=== PATIENT | female | born 1985 | race Caucasian/White ===

== ENCOUNTER 2022-03-24 07:42 | Emergency (ER) | payer OTHER ==
[~2022-03-24] VITALS: Ht 165.1 cm; Wt 81.5 kg
[2022-03-24] MEDS ORDERED: PREDNISONE20 MG PO (09:31)
[2022-03-24] MEDS ORDERED: BENZONATATE100 MG PO (09:31)
[2022-03-24] MEDS ORDERED: ZITHROMAX250 MG PO (09:31)
== END 2022-03-24 09:45 | disposition home or self-care (01) ==
LOC: ED 07:42
DX: J20.9 Acute bronchitis, unspecified (principal); Z20.822 Contact with and (suspected) exposure to COVID-19
CPT/HCPCS: 71046; 87502; 94640; 94664; 99285-25; C9803; J7512; U0003

== ENCOUNTER 2022-06-25 20:55 | Emergency (ER) | payer OTHER ==
[~2022-06-25] VITALS: Ht 165.1 cm; Wt 82.0 kg
[~2022-06-25 20:55] MED LIST: BENZONATATE100 MG PO; PREDNISONE20 MG PO; ZITHROMAX250 MG PO
[2022-06-25] MEDS ORDERED: HYDROXYZINE HCL25 MG PO (23:03)
[2022-06-25] MEDS ORDERED: VITAMIN B-1100 MG PO (23:03)
[2022-06-25] MEDS ORDERED: CYCLOBENZAPRINE10 MG PO (23:08)
== END 2022-06-25 23:33 | disposition home or self-care (01) ==
LOC: ED 20:55
DX: U07.1 COVID-19 (principal)
CPT/HCPCS: 87502; 99283; A9270; C9803; U0003

== ENCOUNTER 2022-07-23 05:55 | Day surgery (SDC) | payer OTHER ==
[~2022-07-23] VITALS: Ht 165.1 cm; Wt 81.8 kg
[~2022-07-23 05:55] MED LIST changes: +CYCLOBENZAPRINE10 MG PO; +DOXYCYCLINE HY100 MG PO; +HYDROXYZINE HCL25 MG PO; +VITAMIN B-1100 MG PO
--- NOTE | 2022-07-23 08:01 | NUR ---
07/23/22 0801 Karina Mancilla 0757- PT ARRIVES TO PACU NONAROUSABLE TO STIMULI WITH AN OPA IN PLACE. RESP EVEN AND UNLABORED. OXYGEN SAT HIGH 90'S TO 100% ON 10L VIA MASK. 0801- OXYGEN TITRATED DOWN TO 6L VIA MASK.
--- NOTE | 2022-07-23 10:11 | NUR ---
PT ALERT, ORIENTED AND SUPPORTED BY FAMILY. PT RATHER ANXIOUS ABOUT TODAY. THIS IS HER FIRST SCOPE. EXPLAINED PROCESS FOR TODAY, ALL QUESTONS ASKED ANSWERED. FAMILY REQUESTED PRAYER, WILL FOLLOW
--- NOTE | 2022-07-23 11:14 | OR ---
[facility] [address] [place], [place] [address] Signed DATE OF OPERATION: 07/23/2022 SURGEON: Kendell Sharma MD PREOPERATIVE DIAGNOSES: 1. Resolved generalized abdominal pain. 2. Elevated stool calprotectin. 3. Constipation and diarrhea. POSTOPERATIVE DIAGNOSIS: Unremarkable colonoscopy. PROCEDURE: Colonoscopy with cold biopsies of the terminal ileum, right colon, left colon and rectum. ESTIMATED BLOOD LOSS: None. INDICATIONS: Jaci is a 37-year-old female, asked to see me for a colonoscopy. Around three years ago, she was under tremendous family stress. She said her actually ended up in senior living for a while. They are now back together. She said everything seems to be a little better. She continues to work at our local [employer]. She had been to her primary care provider when her symptoms were exacerbated. The stool calprotectin level came back elevated at 438. Her stool lactoferrin level was negative. There was some concern for inflammatory bowel disease. Jaci has been very anxious and she said she started drinking alcohol once again. She put on 40 pounds. She also uses a little marijuana. She told me she was raised as a foster care child. She knows some of the biologic family, but is not aware of any colon polyps, colon cancer or inflammatory bowel disease. Overall, she thinks she is feeling better. This morning, she was very anxious coming into our procedure. I explained to her she was going to need monitored anesthesia care given her alcohol and marijuana use. That proved to be a very melo decision today. She needed repeated boluses of the propofol. In the office, I gave her a pamphlet on colonoscopy. We reviewed the nature of that test. There is risk including, but not limited to gas bloating, crampy abdominal pain, bleeding, perforation requiring surgery, and missed diagnosis. We also discussed the need for the monitored anesthesia care. She had expressed understanding and wished to proceed. PROCEDURE NOTE: Jaci was taken into our endoscopy suite and placed in the left lateral decubitus Electronically Signed By: KENDELL SHARMA MD 07/23/22 1114 PATIENT NAME: JACI BROWN NOAH OPERATIVE REPORT DATE OF : 81 REPORT #: [id number] PHYSICIAN: KENDELL SHARMA MD PCP: IRINA MCDUFFIE PAC REPORT IS CONFIDENTIAL AND NOT TO BE RELEASED WITHOUT AUTHORIZATION [facility] [address] [place], [place] [address] Signed position. 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 A digital rectal exam was performed and this was unremarkable. She had good sphincter tone. No external hemorrhoids. There were no masses. The adult colonoscope was introduced and advanced all around into the cecum under direct visualization of the camera. It took extra propofol and abdominal compression in order to advance the scope. Her prep was quite excellent. We could easily see the appendiceal orifice and the ileocecal valve. We turned our scope up into the terminal ilium about 10 or 12 cm. It looked very healthy. We went ahead and took a biopsy out of the terminal ilium for pathologic review. The scope was brought back into the colon. The scope was then slowly withdrawn. We took a random biopsy in the right colon, left colon and rectum. The entire colon was quite healthy and unremarkable. The rectum was unremarkable. Upon retroflexion of the scope, she has very minimal internal hemorrhoid tissue. After this, the gas was suctioned out and colonoscope removed. Jaci tolerated the procedure quite well. RECOMMENDATIONS: I will see Jaci back in my office in 7 to 14 days to review her results. It looks like the stress was related to her abdominal symptoms. She does have internal hemorrhoids that explains some of her intermittent rectal bleeding. Kendell Sharma MD ALB/MODL /[id number] cc: YULIA Katz MD Copies: KENDELL SHARMA MD ~ Electronically Signed By: KENDELL SHARMA MD 07/23/22 1114 PATIENT NAME: JACI BROWN [facility] OPERATIVE REPORT DATE OF : 81 REPORT #: [id number] PHYSICIAN: KENDELL SHARMA MD PCP: IRINA MCDUFFIE PAC REPORT IS CONFIDENTIAL AND NOT TO BE RELEASED WITHOUT AUTHORIZATION
--- NOTE | 2022-07-26 17:34 | PATH ---
[facility] [address] [facility] [place] [address] Signed SPECIMEN(S): A TERMINAL ILEUM SPECIMEN(S): B ASCENDING COLON BIOPSY SPECIMEN(S): C DESCENDING COLON BIOPSY SPECIMEN(S): D RECTUM SPECIMEN SOURCE: A. TERMINAL ILEUM B. ASCENDING COLON BIOPSY C. DESCENDING COLON BIOPSY D. RECTUM CLINICAL HISTORY: Colonoscopy. Constipation, abdominal pain. Rule out inflammatory bowel disease. FINAL PATHOLOGIC DIAGNOSIS: A. Terminal ileum: - Scant fragments of quiescent small bowel-type mucosa, negative for pathologic inflammation of epithelial atypia. B. Ascending colon biopsy: - Quiescent colonic mucosa, negative for dysplasia. C. Descending colon biopsy: - Quiescent colonic mucosa, negative for dysplasia. D. Rectum, biopsy: - Quiescent colonic mucosa, negative for dysplasia. JVR:[id number] MICROSCOPIC EXAMINATION: Histologic sections of all submitted blocks are examined by light microscopy. These findings, together with the gross examination, support the pathologic diagnosis. GROSS DESCRIPTION: Four specimens are received in four containers, labeled "TF." A. The specimen, labeled "TF, terminal ileum biopsy," is received in formalin and consists of one rodrigez soft tissue fragment that measures 0.2 cm in greatest dimension. The specimen is entirely submitted in cassette (A1). B. The specimen, labeled "TF, ascending colon biopsy," is received in formalin and consists of one rodrigez soft tissue fragment that measures 0.3 cm in greatest dimension. The specimen is entirely PATIENT NAME: EDITH BROWN NOAH PATHOLOGY DATE OF : 81 REPORT #: [id number] PHYSICIAN: BRANDIE PHILLIPS PCP: IRINA MCDUFFIE PAC REPORT IS CONFIDENTIAL AND NOT TO BE RELEASED WITHOUT AUTHORIZATION [facility] [address] [facility] [place] [address] Signed submitted in cassette (B1). C. The specimen, labeled "TF, descending colon biopsy," is received in formalin and consists of one rodrigez soft tissue fragment that measures 0.1 cm in greatest dimension. The specimen is entirely submitted in cassette (C1). D. The specimen, labeled "TF, rectum biopsy," is received in formalin and consists of one rodrigez soft tissue fragment that measures 0.2 cm in greatest dimension. The specimen is entirely submitted in cassette (D1). JS (under the direct supervision of a pathologist) The Gross Description was prepared using a voice recognition system. The report was reviewed for accuracy; however, sound-alike word errors, addition and/or deletions may occur. If there is any question about this report, please contact Client Services. PERFORMING LABORATORY: The technical component was performed by [facility], [address] [place] [id number] (CLIA# [id number]). Professional interpretation was performed by [facility], [address] [place] [id number] (CLIA#: [id number]). Diagnostician: Dio Brady MD Pathologist Electronically Signed 07/26/2022 Copies: ~ PATIENT NAME: EDITH BROWN NOAH PATHOLOGY DATE OF : 81 REPORT #: [id number] PHYSICIAN: BRANDIE PHILLIPS PCP: IRINA MCDUFFIE PAC REPORT IS CONFIDENTIAL AND NOT TO BE RELEASED WITHOUT AUTHORIZATION
== END 2022-07-23 09:02 | disposition home or self-care (01) ==
LOC: DS 05:55
PROVIDERS: ATTEND Colon & Rectal Surgery
PROC: 0DBE8ZZ Excision of Large Intestine, Via Natural or Artificial Opening Endoscopic (ICD-10-PCS; 2022-07-23)
PROC: 0DBP8ZZ Excision of Rectum, Via Natural or Artificial Opening Endoscopic (ICD-10-PCS; principal; 2022-07-23 07:30)
DX: K59.00 Constipation, unspecified (principal); R19.7 Diarrhea, unspecified; K62.5 Hemorrhage of anus and rectum; R19.5 Other fecal abnormalities; F12.90 Cannabis use, unspecified, uncomplicated; K64.8 Other hemorrhoids; Z87.891 Personal history of nicotine dependence
CPT/HCPCS: 00811; 88305; J2405; J2704; J7121

== ENCOUNTER 2022-11-22 13:53 | Emergency (ER) | payer OTHER ==
[~2022-11-22] VITALS: Ht 165.1 cm; Wt 82.0 kg
--- NOTE | 2022-11-23 13:07 | EKG ---
[facility] [address] [facility] [place] [address] \T\ T wave abnormality, consider inferior ischemia Abnormal ECG No previous ECGs available Confirmed by MACARIO LAWRENCE MD ([id number]) on 11/23/2022 1:07:53 PM Electronically Signed By: MACARIO LAWRENCE MD 11/23/22 1307 PATIENT NAME: EDITH BROWN NOAH Electrocardiogram DATE OF : 81 PHYSICIAN: MACARIO LAWRENCE MD REPORT #: [id number] REPORT IS CONFIDENTIAL AND NOT TO BE RELEASED WITHOUT AUTHORIZATION
== END 2022-11-22 18:50 | disposition home or self-care (01) ==
LOC: ED 13:53
DX: T43.654A Poisoning by methamphetamines, undetermined, initial encounter (principal); R00.2 Palpitations
CPT/HCPCS: 93005; 93010; 99285-25